=== PATIENT | female | born 1970 | race Two or more races ===

== ENCOUNTER 2022-03-02 04:53 | Emergency (ER) | payer SELFPAY ==
[~2022-03-02] VITALS: Ht 157.5 cm; Wt 72.6 kg
--- NOTE | 2022-03-02 05:20 | NUR ---
20G IV LINE ESTABLISHED AT [facility]. BLOOD DRAWN AND SENT TO LAB.
--- NOTE | 2022-03-02 05:26 | NUR ---
BIBLAP[facility] C/O HIGH BP AND HIGH BS FROM RESIDENTIAL. PATIENT TAKEN TO ER BED 11. PATIENT IS A/O X 4, RR EVEN AND UNLABORED, NO SOB NOTED. PATIENT CONNECTED TO SUPERVISOR EDUCATION AND POX. WILL CONTINUE TO MONITOR.
[2022-03-02] MEDS ORDERED: INSULIN REGULAR, HUMAN 100 UNIT/ML 10 ML VIAL IV ONE (05:30)
[2022-03-02] MEDS ORDERED: IV NS 0.9% 1,000 ML BAG IV ONE (05:30)
--- NOTE | 2022-03-02 05:34 | NUR ---
URINE COLLECTED AND SENT TO LAB
[2022-03-02 05:35] LABS: BASOPHILS # (AUTO) 0.1 K/uL (0.0-0.2); BASOPHILS % (AUTO) 0.6 % (0.0-2.0); EOSINOPHILS % (AUTO) 0.4 % (0.0-6.0); HEMATOCRIT 43 % (33-45); HEMOGLOBIN 14.8 g/dL (11.5-14.8); LYMPHOCYTES # (AUTO) 2.7 K/uL (0.8-4.8); LYMPHOCYTES % (AUTO) 25.3 % (20.0-44.0); MEAN CORPUSCULAR HGB CONC 34 g/dl (31.0-36.0); MEAN CORPUSCULAR VOLUME 86 fL (82-100); MONOCYTES # (AUTO) 0.7 K/uL (0.1-1.30); MONOCYTES % (AUTO) 6.2 % (2.0-12.0); NEUTROPHILS # (AUTO) 7.1 K/uL (1.8-8.9); NEUTROPHILS % (AUTO) 67.5 % (43.0-81.0); PLATELET COUNT (AUTO) 315 K/uL (150-450); RED BLOOD CELL COUNT(AUTO) 5.02 MIL/uL (4.0-5.2); WHITE BLOOD COUNT (AUTO) 10.5 K/uL (4.3-11.0)
[2022-03-02 05:48] LABS: CALCIUM, SERUM 9.1 mg/dL (8.5-10.1); CREATININE 0.7 mg/dL (0.6-1.3); POTASSIUM 3.8 mmol/L (3.5-5.1)
[2022-03-02 05:55] LABS: ALBUMIN 3.7 g/dL (3.4-5.0); BILIRUBIN,DIRECT 0.1 mg/dL (0.0-0.2); BILIRUBIN,TOTAL 0.2 mg/dL (0.2-1.0); TOTAL PROTEIN, SERUM 8.8 g/dL (6.4-8.2)
[2022-03-02 06:07] LABS: BILIRUBIN,URINE NEGATIVE (NEGATIVE); LEUKOCYTE ESTERASE ,URINE NEGATIVE (NEGATIVE); NITRITE, URINE NEGATIVE (NEGATIVE); PROTEIN,URINE TRACE mg/dl (NEGATIVE); UGLUCOSE >=1000 mg/dL (NEGATIVE); UROBILINOGEN,URINE 0.2 EU/dL (0.2)
[2022-03-02 06:12] LABS: COLOR,URINE STRAW (YELLOW)
[2022-03-02 06:14] LABS: BACTERIA,URINE Moderate /HPF (None Seen); SQUAMOUS EPITHELIAL CELL,UR Moderate /HPF (None Seen)
[2022-03-02] MEDS ORDERED: INSULIN REGULAR, HUMAN 100 UNIT/ML 10 ML VIAL SQ ONE (06:30)
--- NOTE | 2022-03-02 08:57 | NUR ---
PT WISHED TO LEAVE FACILTIY AGAINST MEDICAL ADVICE, PT WAS EXPLAINED THE RISKS OF LEAVING AND VERBALIZED UNDERSTANDING. PT SIGNED AMA PAPERWORK. IV WAS REMOVED, 4X4 GUAZE APPLIED TO SITE. PT LEFT FACILITY WALKING.
[2022-03-02 08:59] VITALS: BP 129/76
== END 2022-03-02 08:59 | disposition left against medical advice (07) ==
LOC: ER 04:57
DX: R07.89 Other chest pain (principal); I10 Essential (primary) hypertension; E11.65 Type 2 diabetes mellitus with hyperglycemia; Z60.2 Problems related to living alone
CPT/HCPCS: 36415; 80048; 80076; 81001; 82962 ×2; 84484; 85025; 87077; 87086; 87186; 93005; 96361; 96372; 96374; 99284; J1815; J7030